=== PATIENT | male | born 1975 ===

== ENCOUNTER 2020-03-30 08:31 | Outpatient (CLI) | payer OTHER, SELFPAY ==
[2020-04-01 05:36] LABS: SARS-CoV-2 RNA Undetected (Undetected); SARS-CoV-2 Specimen Source Nasopharynx
== END 2020-03-30 08:51 ==
PROVIDERS: PCP Internal Medicine; Visit Provider Internal Medicine
DX: Z11.59 Encounter for screening for other viral diseases (principal)
CPT/HCPCS: U0003